=== PATIENT | female | born 1945 | race Caucasian/White ===

== ENCOUNTER 2023-05-17 11:10 | Inpatient (IN) | payer MEDICARE, BC ==
[2023-05-17] MEDS ORDERED: SODIUM CHLORIDE 0.9% 1,000 ML IV STA ×2 (11:29→14:02)
--- NOTE | 2023-05-17 12:17 | ED ---
Weakness HPI - General Chief complaint: Weakness Stated complaint: hyperglycemic Time Seen by Provider: 05/17/23 11:14 Source: patient, EMS, RN notes reviewed Mode of arrival: EMS Limitations: no limitations - History of Present Illness Initial comments: This is a 78-year-old female who presents to the emergency department for weakness. Per intermediate staff at [facility], over the last 2-3 days the patient has not been wanting to eat or drink anything. Patient did just have a defibrillator placed one week ago at [facility] and has been healing well without any issues. Patient is unsure why she's not wanting to eat or drink anything. Denies having any pain or complaints. States that she does not feel hungry. The intermediate has also noticed that she had low blood oxygen levels, and started her on 2 L via nasal cannula. They did not specify to EMS what her oxygen levels were. Patient denies any chest pain or shortness of breath. Denies any fevers, chills, sore throat, cough, dyspnea, chest pain, palpitations, abdominal pain, nausea, vomiting, diarrhea, back pain, or headaches. MD Complaint: generalized weakness - Related Data Home Medications Medication Instructions Recorded Confirmed Acetaminophen Tab [Tylenol] 650 mg PO Q4H PRN 05/02/22 05/17/23 Apixaban [Eliquis] 5 mg PO BID@799,199905/02/22 05/17/23 Docusate Sodium [Dok] 100 mg PO DAILY PRN 05/02/22 05/17/23 Ferrous Sulfate [Iron] 325 mg PO DAILY@79905/02/22 05/17/23 HYDROcodone/APAP 5-325MG [[place] 1 tab PO Q6HR PRN 05/02/22 05/17/23 5-325] Levothyroxine Sodium [Synthroid] 200 mcg PO DAILY@0630 05/02/22 05/17/23 Pantoprazole [Protonix] 40 mg PO DAILY@79905/02/22 05/17/23 carvediloL [Coreg] 3.125 mg PO BID@799,199905/02/22 05/17/23 Acetaminophen Tab [Tylenol Tab] 500 - 1,000 mg PO Q4H PRN 05/17/23 05/17/23 Amino Acids/Protein Hydrolys 30 ml PO DAILY@0800 05/17/23 05/17/23 [Pro-Stat Awc Liquid] Bismuth Subsalicylate 262 mg PO BID PRN 05/17/23 05/17/23 [Pepto-Bismol] Calcium Carbonate [Tums] 500 mg PO TID PRN 05/17/23 05/17/23 Clopidogrel [Plavix] 75 mg PO DAILY@1400 05/17/23 05/17/23 Cyanocobalamin (Vitamin B-12) 1,000 mcg PO DAILY@79905/17/23 05/17/23 [Vitamin B-12] Ezetimibe [Zetia] 10 mg PO HS@199905/17/23 05/17/23 Gabapentin [Neurontin] 200 mg PO TID@0800,1400,199905/17/23 05/17/23 Gnp Muscle Rub 10-15% Cream 1 applic TOPICAL DAILY PRN 05/17/23 05/17/23 Hydrocortisone Cream 1 applic TOPICAL DAILY PRN 05/17/23 05/17/23 [Hydrocortisone 1% Cream] Insulin Detemir [Levemir Flexpen] 25 units SQ HS@199905/17/23 05/17/23 Loperamide [Imodium] 2 mg PO QID PRN 05/17/23 05/17/23 Mag Hydrox/Aluminum Hyd/Simeth 10 - 20 ml PO BID PRN 05/17/23 05/17/23 [Mylanta Maximum Strength Liq] Magnesium Hydroxide [Milk of 1,200 mg PO Q72H PRN 05/17/23 05/17/23 Magnesia] Menthol-Zinc Oxide Oint 1 applic TOPICAL TID@0800,1400,199905/17/23 05/17/23 [Calmoseptine Ointment] Midodrine [ProAmatine] 5 mg PO TID@0630,1200,1600 05/17/23 05/17/23 Rgxfvrvr-Gkhtsnjclm-Wcxe Oint 1 applic TOPICAL DAILY PRN 05/17/23 05/17/23 [Triple Antibiotic Ointment] Nystatin 100,000 Unit/gm Powd 1 applic TOPICAL DAILY PRN 05/17/23 05/17/23 [Mycostatin Powder] Simethicone [Gas-X] 125 mg PO BID PRN 05/17/23 05/17/23 guaiFENesin SYRUP 100MG/5ML 200 mg PO Q4H PRN 05/17/23 05/17/23 [Robitussin] Allergies Allergy/AdvReac Type Severity Reaction Status Date / Time ciprofloxacin [From Cipro] AdvReac Unknown Verified 05/17/23 13:19 egg AdvReac Unknown Verified 05/17/23 13:19 Influenza Virus Vaccines AdvReac Unknown Verified 05/17/23 13:19 Penicillins AdvReac Confusion Verified 05/17/23 13:19 Review of Systems ROS Statement: Those systems with pertinent positive or pertinent negative responses have been documented in the HPI. ROS Other: All systems not noted in ROS Statement are negative. Past Medical History Past Medical History: Diabetes Mellitus, Hypertension, Thyroid Disorder Additional Past Medical History / Comment(s): Type 2 DM, hypothyroid History of Any Multi-Drug Resistant Organisms: None Reported Additional Past Surgical History / Comment(s): left BKA Past Psychological History: No Psychological Hx Reported Smoking Status: Former smoker Past Alcohol Use History: None Reported Past Drug Use History: None Reported General Exam Limitations: no limitations General appearance: alert, in no apparent distress Head exam: Present: atraumatic, normocephalic, normal inspection Respiratory exam: Present: normal lung sounds bilaterally. Absent: respiratory distress, wheezes, rales, rhonchi, stridor Cardiovascular Exam: Present: regular rate, normal rhythm, normal heart sounds. Absent: systolic murmur, diastolic murmur, rubs, gallop, clicks GI/Abdominal exam: Present: soft. Absent: tenderness Neurological exam: Present: alert, oriented X3, CN II-XII intact Psychiatric exam: Present: normal affect, normal mood Skin exam: Present: warm, dry, intact, normal color. Absent: rash Course Vital Signs 05/17/23 05/17/23 05/17/23 11:23 13:03 15:26 Temperature 98.2 F 99.3 F Pulse Rate 97 107 H 99 Respiratory 18 22 Rate Blood Pressure 91/55 119/67 134/71 O2 Sat by Pulse 96 99 Oximetry 05/17/23 16:43 Temperature Pulse Rate 86 Respiratory 20 Rate Blood Pressure 134/64 O2 Sat by Pulse 97 Oximetry Medical Decision Making - Medical Decision Making This is a 78-year-old female who presents to the emergency department for generalized weakness. Was pt. sent in by a medical professional or institution? @ -[facility] Did you speak to anyone other than the patient for history? @ -No Did you review nursing and triage notes? @ -Yes, and I agree, it is accurate with regards to the patient's symptoms. Were old charts reviewed? @ -No Differential Diagnosis? @ -Differential Weakness: Hypoglycemia, shock, sepsis, hyponatremia, anemia, infection, UT, ETOH, adverse medicine reaction, overdose, stroke, this is not meant to be an all-inclusive list. EKG interpreted by me (3pts min.)? @ -EKG interpreted by me demonstrating the following: Sinus rhythm. Ventricular rate 95 beats per minute, SD interval 175 ms, QRS duration 110 ms, QTC 397 ms. X-rays interpreted by me (1pt min.)? @ -Chest x-ray obtained, my interpretation identifies no localized consoli dations or infiltrates. CT interpreted by me (1pt min.)? @ -Not obtained U/S interpreted by me (1pt. min.)? @ -Not obtained What testing was considered but not performed? (CT, X-rays, U/S, labs)? Why? @ -None What meds were considered but not given? Why? @ -None Did you discuss the management of the patient with other professionals? @ -Yes, Dr. Francisco, who accepts the patient for admission. Did you reconcile home meds? @ -No Was smoking cessation discussed for >3mins.? @ -No Was critical care preformed (if so, how long)? @ -No Were there social determinants of health that impacted care today? How? (Homelessness, low income, unemployed, alcoholism, drug addiction, trans portation, low edu. Level, literacy, decrease access to med. care, skilled nursing, rehab)? @ -No Was there de-escalation of care discussed even if they declined? (Discuss DNR or withdrawal of care, Hospice)? @ -No What co-morbidities impacted this encounter? (DM, HTN, Smoking, COPD, CAD, Cancer, CVA, Hep., AIDS, mental health diagnosis, sleep apnea, morbid obesity)? @ -DM, HTN, thyroid disorder Was patient admitted / discharged? @ -Admitted. Lab work obtained revealing poor renal function and leukocytosis. However, we do not have prior lab values to compare renal function with. Chest x-ray obtained revealing no acute process. We did turn off the patient's supplemental oxygen that was reportedly started 2 days ago by Courtney Bolton. Her oxygen subsequently dropped to 91-92% on room air. We did end up turning her oxygen back on as a result. Urinalysis is consistent with infection. Patient meets septic criteria with the tachycardia, leukocytosis, and source of infection. She was given 1g of ceftriaxone. Urine and blood cultures obtained. She was also given a 2500 mL bolus of IV fluids per the 30 mL/kg requirement and started on maintenance fluids at 130 mL/hr. Patient admitted to medicine for further management of UTI complicated by sepsis. Undiagnosed new problem with uncertain prognosis? @ -None Drug Therapy requiring intensive monitoring for toxicity (Heparin, Nitro, Insulin, Cardizem)? @ -None Were any procedures done? @ -None Diagnosis/symptom? @ -Sepsis, UTI Acute, or Chronic, or Acute on Chronic? @ -Acute Uncomplicated (without systemic symptoms) or Complicated (systemic symptoms)? @ -Complicated Side effects of treatment? @ -None Exacerbation, Progression, or Severe Exacerbation] @ -Not applicable Poses a threat to life or bodily function? @ -Yes This case was discussed in detail with the attending ED physician, Dr. Zaidi. Presentation, findings, and treatment plan discussed in detail as well. - Lab Data Result diagrams: 05/17/23 13:00 05/17/23 11:24 Lab Results 05/17/23 05/17/23 05/17/23 Range/Units 11:24 11:24 11:24 WBC (3.8-10.6) k/uL RBC (3.80-5.40) m/uL Hgb (11.4-16.0) gm/dL Hct (34.0-46.0) % MCV (80.0-100.0) fL MCH (25.0-35.0) pg MCHC (31.0-37.0) g/dL RDW (11.5-15.5) % Plt Count (150-450) k/uL MPV Neutrophils % % Lymphocytes % % Monocytes % % Eosinophils % % Basophils % % Neutrophils # (1.3-7.7) k/uL Lymphocytes # (1.0-4.8) k/uL Monocytes # (0-1.0) k/uL Eosinophils # (0-0.7) k/uL Basophils # (0-0.2) k/uL PT 11.6 (9.0-12.0) sec INR 1.1 (<1.2) APTT 24.8 (22.0-30.0) sec Sodium 133 L (137-145) mmol/L Potassium 4.9 (3.5-5.1) mmol/L Chloride 101 (98-107) mmol/L Carbon Dioxide 21 L (22-30) mmol/L Anion Gap 11 mmol/L BUN 47 H (7-17) mg/dL Creatinine 2.00 H (0.52-1.04) mg/dL Est GFR (CKD-EPI)AfAm 27 (>60 ml/min/1.73 sqM) Est GFR (CKD-EPI)NonAf 24 (>60 ml/min/1.73 sqM) Glucose 231 H (74-99) mg/dL Plasma Lactic Acid Malik 1.1 (0.7-2.0) mmol/L Calcium 10.5 H (8.4-10.2) mg/dL Phosphorus 4.5 (2.5-4.5) mg/dL Magnesium 1.9 (1.6-2.3) mg/dL Total Bilirubin 0.8 (0.2-1.3) mg/dL AST 20 (14-36) U/L ALT 10 (4-34) U/L Alkaline Phosphatase 69 (38-126) U/L Troponin I (0.000-0.034) ng/mL Total Protein 7.5 (6.3-8.2) g/dL Albumin 3.5 (3.5-5.0) g/dL Urine Color Urine Appearance (Clear) Urine pH (5.0-8.0) Ur Specific [place] (1.001-1.035) Urine Protein (Negative) Urine Glucose (UA) (Negative) Urine Ketones (Negative) Urine Blood (Negative) Urine Nitrite (Negative) Urine Bilirubin (Negative) Urine Urobilinogen (<2.0) mg/dL Ur Leukocyte Esterase (Negative) Urine RBC (0-5) /hpf Urine WBC (0-5) /hpf Urine WBC Clumps (None) /hpf Urine Bacteria (None) /hpf Acetone, Qual Positive (Negative) Influenza Type A (PCR) (Not Detectd) Influenza Type B (PCR) (Not Detectd) RSV (PCR) (Not Detectd) SARS-CoV-2 (PCR) (Not Detectd) 05/17/23 05/17/23 05/17/23 Range/Units 11:24 11:47 13:00 WBC 17.7 H (3.8-10.6) k/uL RBC 4.15 (3.80-5.40) m/uL Hgb 12.8 (11.4-16.0) gm/dL Hct 40.0 (34.0-46.0) % MCV 96.4 (80.0-100.0) fL MCH 30.7 (25.0-35.0) pg MCHC 31.9 (31.0-37.0) g/dL RDW 13.5 (11.5-15.5) % Plt Count 376 (150-450) k/uL MPV 7.2 Neutrophils % 85 % Lymphocytes % 7 % Monocytes % 7 % Eosinophils % 0 % Basophils % 0 % Neutrophils # 15.0 H (1.3-7.7) k/uL Lymphocytes # 1.2 (1.0-4.8) k/uL Monocytes # 1.2 H (0-1.0) k/uL Eosinophils # 0.1 (0-0.7) k/uL Basophils # 0.0 (0-0.2) k/uL PT (9.0-12.0) sec INR (<1.2) APTT (22.0-30.0) sec Sodium (137-145) mmol/L Potassium (3.5-5.1) mmol/L Chloride (98-107) mmol/L Carbon Dioxide (22-30) mmol/L Anion Gap mmol/L BUN (7-17) mg/dL Creatinine (0.52-1.04) mg/dL Est GFR (CKD-EPI)AfAm (>60 ml/min/1.73 sqM) Est GFR (CKD-EPI)NonAf (>60 ml/min/1.73 sqM) Glucose (74-99) mg/dL Plasma Lactic Acid Malik (0.7-2.0) mmol/L Calcium (8.4-10.2) mg/dL Phosphorus (2.5-4.5) mg/dL Magnesium (1.6-2.3) mg/dL Total Bilirubin (0.2-1.3) mg/dL AST (14-36) U/L ALT (4-34) U/L Alkaline Phosphatase (38-126) U/L Troponin I 0.016 (0.000-0.034) ng/mL Total Protein (6.3-8.2) g/dL Albumin (3.5-5.0) g/dL Urine Color Urine Appearance (Clear) Urine pH (5.0-8.0) Ur Specific [place] (1.001-1.035) Urine Protein (Negative) Urine Glucose (UA) (Negative) Urine Ketones (Negative) Urine Blood (Negative) Urine Nitrite (Negative) Urine Bilirubin (Negative) Urine Urobilinogen (<2.0) mg/dL Ur Leukocyte Esterase (Negative) Urine RBC (0-5) /hpf Urine WBC (0-5) /hpf Urine WBC Clumps (None) /hpf Urine Bacteria (None) /hpf Acetone, Qual (Negative) Influenza Type A (PCR) Not Detected (Not Detectd) Influenza Type B (PCR) Not Detected (Not Detectd) RSV (PCR) Not Detected (Not Detectd) SARS-CoV-2 (PCR) Not Detected (Not Detectd) 05/17/23 Range/Units 13:30 WBC (3.8-10.6) k/uL RBC (3.80-5.40) m/uL Hgb (11.4-16.0) gm/dL Hct (34.0-46.0) % MCV (80.0-100.0) fL MCH (25.0-35.0) pg MCHC (31.0-37.0) g/dL RDW (11.5-15.5) % Plt Count (150-450) k/uL MPV Neutrophils % % Lymphocytes % % Monocytes % % Eosinophils % % Basophils % % Neutrophils # (1.3-7.7) k/uL Lymphocytes # (1.0-4.8) k/uL Monocytes # (0-1.0) k/uL Eosinophils # (0-0.7) k/uL Basophils # (0-0.2) k/uL PT (9.0-12.0) sec INR (<1.2) APTT (22.0-30.0) sec Sodium (137-145) mmol/L Potassium (3.5-5.1) mmol/L Chloride (98-107) mmol/L Carbon Dioxide (22-30) mmol/L Anion Gap mmol/L BUN (7-17) mg/dL Creatinine (0.52-1.04) mg/dL Est GFR (CKD-EPI)AfAm (>60 ml/min/1.73 sqM) Est GFR (CKD-EPI)NonAf (>60 ml/min/1.73 sqM) Glucose (74-99) mg/dL Plasma Lactic Acid Malik (0.7-2.0) mmol/L Calcium (8.4-10.2) mg/dL Phosphorus (2.5-4.5) mg/dL Magnesium (1.6-2.3) mg/dL Total Bilirubin (0.2-1.3) mg/dL AST (14-36) U/L ALT (4-34) U/L Alkaline Phosphatase (38-126) U/L Troponin I (0.000-0.034) ng/mL Total Protein (6.3-8.2) g/dL Albumin (3.5-5.0) g/dL Urine Color Light Yellow Urine Appearance Turbid H (Clear) Urine pH 5.5 (5.0-8.0) Ur Specific [place] 1.019 (1.001-1.035) Urine Protein 200 (Negative) Urine Glucose (UA) 1+ (Negative) Urine Ketones Negative (Negative) Urine Blood 0.5 (Negative) Urine Nitrite Negative (Negative) Urine Bilirubin Negative (Negative) Urine Urobilinogen <0.2 (<2.0) mg/dL Ur Leukocyte Esterase Large (Negative) Urine RBC >182 H (0-5) /hpf Urine WBC >182 H (0-5) /hpf Urine WBC Clumps Many H (None) /hpf Urine Bacteria Many H (None) /hpf Acetone, Qual (Negative) Influenza Type A (PCR) (Not Detectd) Influenza Type B (PCR) (Not Detectd) RSV (PCR) (Not Detectd) SARS-CoV-2 (PCR) (Not Detectd) - Radiology Data Radiology results: report reviewed, image reviewed Disposition Clinical Impression: Sepsis, UTI (urinary tract infection) Disposition: ADMITTED IP TO THIS HOSP
[2023-05-17 12:25] LABS: INR 1.1 (<1.2); Partial Thromboplastin Time 24.8 sec (22.0-30.0); Prothrombin Time 11.6 sec (9.0-12.0)
[2023-05-17 12:37] LABS: ALT 10 U/L (4-34); AST 20 U/L (14-36); African American GFR (CKD) 27 (>60 ml/min/1.73 sqM); Albumin 3.5 g/dL (3.5-5.0); Alkaline Phosphatase 69 U/L (38-126); Anion Gap 11 mmol/L; Blood Urea Nitrogen 47 mg/dL (7-17); Calcium 10.5 mg/dL (8.4-10.2); Carbon Dioxide 21 mmol/L (22-30); Chloride 101 mmol/L (98-107); Glucose 231 mg/dL (74-99); Magnesium 1.9 mg/dL (1.6-2.3); Non-African American GFR(CKD) 24 (>60 ml/min/1.73 sqM); Phosphorus 4.5 mg/dL (2.5-4.5); Potassium 4.9 mmol/L (3.5-5.1); Sodium 133 mmol/L (137-145); Total Bilirubin 0.8 mg/dL (0.2-1.3); Total Protein 7.5 g/dL (6.3-8.2)
--- NOTE | 2023-05-17 12:40 | XR ---
EXAMINATION TYPE: XR chest 2V DATE OF EXAM: 05/17/2023 COMPARISON: NONE TECHNIQUE: PA and lateral views submitted. HISTORY: Difficulty in breathing FINDINGS: The lungs are clear and there is no pneumothorax, pleural effusion, or focal pneumonia. Heart size normal and no overt failure. Osseous structures demonstrate hypertrophic and degenerative changes of the spine. Cardiac device noted. Diffuse osteopenia and arthropathy of the shoulders. Atherosclerotic change aorta. IMPRESSION: 1. No acute process.
[2023-05-17 13:29] LABS: Basophils % (A) 0 %; Eosinophils # (A) 0.1 k/uL (0-0.7); Eosinophils % (A) 0 %; HGB 12.8 gm/dL (11.4-16.0); Lymphocytes # (A) 1.2 k/uL (1.0-4.8); Lymphocytes % (A) 7 %; MCH 30.7 pg (25.0-35.0); MCHC 31.9 g/dL (31.0-37.0); MCV 96.4 fL (80.0-100.0); Mean Platelet Volume 7.2; Monocytes # (A) 1.2 k/uL (0-1.0); Monocytes % (A) 7 %; Neutrophils % (A) 85 %; Platelet Count 376 k/uL (150-450); RBC 4.15 m/uL (3.80-5.40); RDW 13.5 % (11.5-15.5); WBC 17.7 k/uL (3.8-10.6)
[2023-05-17 13:55] LABS: Bacteria,Urine Many /hpf; RBC,Urine >182 /hpf (0-5); WBC,Urine >182 /hpf (0-5)
[2023-05-17] MEDS ORDERED: cefTRIAXone IN SWFI 1,000 MG/10 ML SYRINGE IVP STA (14:00)
[2023-05-17] MEDS ORDERED: SODIUM CHLORIDE 0.9% 500 ML 500 ML IV STA (14:02)
[2023-05-17 14:21] LABS: Appearance,Urine Turbid (Clear); Color,Urine Light Yellow
[2023-05-17 14:22] LABS: Bilirubin,Urine Negative (Negative); Blood,Urine 0.5 (Negative); Glucose,Urine (UA) 1+ (Negative); Ketones,Urine Negative (Negative); PH, Urine 5.5 (5.0-8.0); Protein,Urine 200 (Negative); Specific Gravity,Urine 1.019 (1.001-1.035)
[2023-05-17 14:23] LABS: Leukocyte Esterase,Urine Large (Negative); Nitrite,Urine Negative (Negative); Urobilinogen,Urine <0.2 mg/dL (<2.0)
[2023-05-17] MEDS ORDERED: ONDANSETRON 4 MG/2 ML VIAL IVP PRN (14:25)
[2023-05-17] MEDS ORDERED: HYDROcodone/APAP 5-325MG 1 EACH TAB PO PRN (14:25)
[2023-05-17] MEDS ORDERED: NALOXONE 0.4 MG/ML 1 ML VIAL IV PRN (14:25)
[2023-05-17] MEDS ORDERED: ACETAMINOPHEN TAB 325 MG TAB PO PRN (14:25)
[2023-05-17] MEDS ORDERED: MELATONIN 3 MG TABLET PO PRN (16:36)
[2023-05-17] MEDS ORDERED: bisacodyL 5 MG TABLET.DR PO PRN (16:36)
[2023-05-17] MEDS ORDERED: DOCUSATE 100 MG CAP PO PRN (16:43)
[2023-05-17] MEDS ORDERED: BISMUTH SUBSALICYLATE 4,192 MG/240 ML BOTTLE PO PRN (16:43)
[2023-05-17] MEDS ORDERED: DEXTROSE 50% SYRINGE 50 ML IVP PRN ×2 (16:46)
[2023-05-17] MEDS: SODIUM CHLORIDE 0.9% 1,000 ML IV SCH (17:30)
--- NOTE | 2023-05-17 17:34 | P.HPIM ---
History of Present Illness H&P Date: 05/17/23 Patient is a 78-year-old female history of congestive heart failure status post AICD one week ago at [facility], diabetes mellitus type 2, and hypertension who presented to the ER from her assisted living due to decreased oral intake and lethargy. On arrival to the ER she was relatively hypotensive with a blood pressure of 91/55. Urinalysis was reviewed. CBC remarkable for white blood cell count of 17.7. ENT remarkable for sodium 133, carbon dioxide 21, BUN 47, creatinine 2, glucose 231, and calcium 10.5. Urinalysis showed greater than 182 white blood cells. Influenza a/B/RSV/COVID-19 testing was negative. Chest x-ray showed no acute process. Patient seen and examined at bedside in the emergency department. She has a friend present at bedside who helps as much history gathering as the patient is sleepy. Apparently she has felt tired and lethargic for the last 2 days. She had not noticed any dysuria or increased urinary frequency. She was having some lower abdominal pain and nausea but no vomiting. She reports that she recently had an AICD implanted at [facility] approximately one week ago and had a LifeVest before that. She does have a history of congestive heart failure but is unsure of her exact ejection fraction and cannot currently remember her drug purchaser's name. She is unsure she's had any fevers. She denies any unusual chest pain other than some discomfort when moving her arm near her new ICD site. Vital signs reviewed General: nontoxic, no distress, appears at stated age Derm: warm, dry Eyes: EOMI, no lid lag, anicteric sclera, pupils equal round reactive to light ENT: Nose and ears atraumatic, no thrush, no pharyngeal erythema, dry mucous membranes Cardiovascular: S1S2 reg, no murmur, positive posterior tibial pulse on the right, no edema, capillary refill less than 2 seconds, enlargement over ICD site was some bruising, no warmth, no erythema, no incisional breakdown or drainage. Lungs: clear to auscultation bilateral, no rhonchi, no rales, no wheeze, no accessory muscle use Abdominal: soft, nontender to palpation, no guarding, no appreciable organomegaly, normal bowel sounds Ext: no gross muscle atrophy, left sided BKA, no contractures Neuro: CN II-XII grossly intact, no focal neuro deficits Psych: Alert, oriented, appropriate affect Assessment/Plan: UTI with sepsis Acute kidney injury Acute metabolic encephalopathy -Rocephin 1 g every 24 hours -Await urine culture -Gentle IV fluids with normal saline at 130 mL/h 12 hours and then discontinued due to her history of congestive heart failure -Check renal ultrasound - when gets to floor suggest requesting records fro [facility] -Hold home [place] dosing due to altered mentation 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 Patient believes she may have atrial fibrillation bu t is on sure. -325 mg twice daily Plavix 75 mg daily. Patient is unsure why she is on this medication but denies any history of cardiac or vascular stenting, bypass surgery, or stroke/TIA -Zetia 10 mg at night -Ferrous sulfate 325 mg daily -Midodrine 5 mg 3 times daily GERD Hypothyroidism -Synthroid 200 g daily -Protonix 40 mg daily Imaging: As per HPI Data Review: As per HPI The patient is admitted with an anticipated greater than 2 midnight stay for evaluation of UTI with sepsis . CODE STATUS:Full DVT prophylaxis: Eliquis Anticipated discharge date: Pending Clinical Course Anticipated discharge place: Pending Clinical Course This dictation was prepared using [employer] voice recognition software. Though every attempt is made to correct errors during dictation some may still exist. Past Medical History Past Medical History: Diabetes Mellitus, Hypertension, Thyroid Disorder Additional Past Medical History / Comment(s): Type 2 DM, hypothyroid, congestive heart failure, atrial fibrillation, gastric ulcer History of Any Multi-Drug Resistant Organisms: None Reported Additional Past Surgical History / Comment(s): left BKA, AICD Past Psychological History: No Psychological Hx Reported Smoking Status: Former smoker Past Alcohol Use History: None Reported Past Drug Use History: None Reported Medications and Allergies Home Medications Medication Instructions Recorded Confirmed Type Acetaminophen Tab [Tylenol] 650 mg PO Q4H PRN 05/02/22 05/17/23 History Apixaban [Eliquis] 5 mg PO BID@0800,199905/02/22 05/17/23 History Docusate Sodium [Dok] 100 mg PO DAILY PRN 05/02/22 05/17/23 History Ferrous Sulfate [Iron] 325 mg PO DAILY@79905/02/22 05/17/23 History HYDROcodone/APAP 5-325MG [[place] 1 tab PO Q6HR PRN 05/02/22 05/17/23 History 5-325] Levothyroxine Sodium [Synthroid] 200 mcg PO DAILY@0630 05/02/22 05/17/23 History Pantoprazole [Protonix] 40 mg PO DAILY@79905/02/22 05/17/23 History carvediloL [Coreg] 3.125 mg PO BID@799,199905/02/22 05/17/23 History Acetaminophen Tab [Tylenol Tab] 500 - 1,000 mg PO Q4H PRN 05/17/23 05/17/23 History Amino Acids/Protein Hydrolys 30 ml PO DAILY@79905/17/23 05/17/23 History [Pro-Stat Awc Liquid] Bismuth Subsalicylate 262 mg PO BID PRN 05/17/23 05/17/23 History [Pepto-Bismol] Calcium Carbonate [Tums] 500 mg PO TID PRN 05/17/23 05/17/23 History Clopidogrel [Plavix] 75 mg PO DAILY@1400 05/17/23 05/17/23 History Cyanocobalamin (Vitamin B-12) 1,000 mcg PO DAILY@0800 05/17/23 05/17/23 History [Vitamin B-12] Ezetimibe [Zetia] 10 mg PO HS@199905/17/23 05/17/23 History Gabapentin [Neurontin] 200 mg PO TID@0800,1399,199905/17/23 05/17/23 History Gnp Muscle Rub 10-15% Cream 1 applic TOPICAL DAILY PRN 05/17/23 05/17/23 History Hydrocortisone Cream 1 applic TOPICAL DAILY PRN 05/17/23 05/17/23 History [Hydrocortisone 1% Cream] Insulin Detemir [Levemir Flexpen] 25 units SQ HS@199905/17/23 05/17/23 History Loperamide [Imodium] 2 mg PO QID PRN 05/17/23 05/17/23 History Mag Hydrox/Aluminum Hyd/Simeth 10 - 20 ml PO BID PRN 05/17/23 05/17/23 History [Mylanta Maximum Strength Liq] Magnesium Hydroxide [Milk of 1,200 mg PO Q72H PRN 05/17/23 05/17/23 History Magnesia] Menthol-Zinc Oxide Oint 1 applic TOPICAL TID@0800,1400,2000 05/17/23 05/17/23 History [Calmoseptine Ointment] Midodrine [ProAmatine] 5 mg PO TID@0630,1200,1600 05/17/23 05/17/23 History Deoluqgu-Dpuqwyawtw-Onyy Oint 1 applic TOPICAL DAILY PRN 05/17/23 05/17/23 History [Triple Antibiotic Ointment] Nystatin 100,000 Unit/gm Powd 1 applic TOPICAL DAILY PRN 05/17/23 05/17/23 History [Mycostatin Powder] Simethicone [Gas-X] 125 mg PO BID PRN 05/17/23 05/17/23 History guaiFENesin SYRUP 100MG/5ML 200 mg PO Q4H PRN 05/17/23 05/17/23 History [Robitussin] Allergies Allergy/AdvReac Type Severity Reaction Status Date / Time ciprofloxacin [From Cipro] AdvReac Unknown Verified 05/17/23 13:19 egg AdvReac Unknown Verified 05/17/23 13:19 Influenza Virus Vaccines AdvReac Unknown Verified 05/17/23 13:19 Penicillins AdvReac Confusion Verified 05/17/23 13:19 Physical Exam Osteopathic Statement: *. No significant issues noted on an osteopathic structural exam other than those noted in the History and Physical/Consult. Vitals: Vital Signs Temp Pulse Resp BP Pulse Ox 05/17/23 16:43 86 20 134/64 97 05/17/23 15:26 99.3 F 99 22 134/71 99 05/17/23 13:03 107 H 119/67 05/17/23 11:23 98.2 F 97 18 91/55 96 Intake and Output 05/17/23 05/17/23 05/17/23 06:59 14:59 22:59 Other: Weight 83.915 kg Results CBC & Chem 7: 05/17/23 13:00 05/17/23 11:24 Labs: Abnormal Lab Results - Last 24 Hours (Table) 05/17/23 05/17/23 05/17/23 Range/Units 11:24 13:00 13:30 WBC 17.7 H (3.8-10.6) k/uL Neutrophils # 15.0 H (1.3-7.7) k/uL Monocytes # 1.2 H (0-1.0) k/uL Sodium 133 L (137-145) mmol/L Carbon Dioxide 21 L (22-30) mmol/L BUN 47 H (7-17) mg/dL Creatinine 2.00 H (0.52-1.04) mg/dL Glucose 231 H (74-99) mg/dL Calcium 10.5 H (8.4-10.2) mg/dL Urine Appearance Turbid H (Clear) Urine RBC >182 H (0-5) /hpf Urine WBC >182 H (0-5) /hpf Urine WBC Clumps Many H (None) /hpf Urine Bacteria Many H (None) /hpf
--- NOTE | 2023-05-17 18:18 | US ---
EXAMINATION TYPE: US renals and bladder DATE OF EXAM: 05/17/2023 COMPARISON: NONE CLINICAL INDICATION: Female, 78 years old with history of FLORINDA; EXAM MEASUREMENTS: Right Kidney: 10.3 x 5.3 x 4.9 cm Left Kidney: 10.45 x 6.0 x 5.5 cm Right Kidney: No suspicious masses, cortical medullary differentiation maintained. No hydronephrosis. Left Kidney: No suspicious masses, cortical medullary differentiation maintained. No hydronephrosis . Urinary bladder is anechoic no suspicious masses. IMPRESSION: No evidence for suspicious mass. No evidence for obstructive uropathy. Cortical medullary differentia tion is maintained.
[2023-05-17 18:46] LABS: Glucose,Whole Blood 197 mg/dL (70-110)
[2023-05-17] MEDS: carvediloL 3.125 MG TAB PO SCH (19:08)
[2023-05-17] MEDS: EZETIMIBE 10 MG TAB PO SCH (19:08)
[2023-05-17] MEDS: INSULIN ASPART (NovoLOG) 100 UNIT/ML VIAL SQ SCH ×2 (19:08→21:10)
[2023-05-17] MEDS: APIXABAN 5 MG TAB PO SCH (19:08)
[2023-05-17] MEDS: GABAPENTIN 100 MG CAP PO SCH (19:08)
[2023-05-17 20:47] LABS: Glucose,Whole Blood 251 mg/dL (70-110)
[2023-05-17] MEDS: INSULIN DETEMIR (LEVEMIR) 100 UNIT/ML SYR SQ SCH (21:10)
[2023-05-18] MEDS: SODIUM CHLORIDE 0.9% 1,000 ML IV SCH ×4 (02:08→21:32)
[2023-05-18] MEDS: LEVOTHYROXINE 100 MCG TAB PO SCH (06:08)
[2023-05-18] MEDS: MIDODRINE 5 MG TAB PO SCH ×3 (06:14→15:19)
[2023-05-18 07:08] LABS: Glucose,Whole Blood 70 mg/dL (70-110)
[2023-05-18] MEDS: INSULIN ASPART (NovoLOG) 100 UNIT/ML VIAL SQ SCH ×4 (08:09→21:32)
[2023-05-18] MEDS: GABAPENTIN 100 MG CAP PO SCH ×3 (08:16→21:31)
[2023-05-18] MEDS: carvediloL 3.125 MG TAB PO SCH ×2 (08:16→21:31)
[2023-05-18] MEDS: APIXABAN 5 MG TAB PO SCH ×2 (08:17→21:31)
[2023-05-18] MEDS: PANTOPRAZOLE 40 MG TABLET PO SCH (08:17)
[2023-05-18] MEDS: FERROUS SULFATE 325 MG TAB PO SCH (08:17)
[2023-05-18 11:00] LABS: HCT 34.1 % (37.2-46.3); HGB 10.7 d/dL (12.0-15.0); MCH 30.8 pg (27.0-32.0); MCHC 31.4 d/dL (32.0-37.0); MCV 98.3 FL (80.0-97.0); Mean Platelet Volume 9.2 FL (9.5-12.2); NRBC Per 100 WBC 0 X 10*3/uL (0.00-0.01); Platelet Count 270 X 10*3/uL (140-440); RBC 3.47 X 10*6/uL (4.10-5.20); RDW 13.4 % (11.5-14.5); WBC 10.39 X 10*3/uL (4.50-10.00)
[2023-05-18 11:06] LABS: BUN/Creat Ratio 20.37 Ratio (12.00-20.00); Blood Urea Nitrogen 38.7 mg/dL (9.0-27.0); Calcium 9.6 mg/dL (8.7-10.3); Carbon Dioxide 20.8 mmol/L (21.6-31.8); Chloride 107 mmol/L (96-109); Glucose 75 mg/dL (70-110); Potassium 3.9 mmol/L (3.5-5.5); Sodium 138 mmol/L (135-145)
[2023-05-18 11:34] LABS: Glucose,Whole Blood 163 mg/dL (70-110)
[2023-05-18] MEDS: CLOPIDOGREL 75 MG TAB PO SCH (15:16)
[2023-05-18] MEDS: NYSTATIN 100,000 UNIT/GM OINT 30 GM TUBE TOPICAL SCH ×2 (15:18→21:33)
[2023-05-18] MEDS: NYSTATIN 100,000 UNIT/GM POWD 15 GM TOPICAL SCH ×2 (15:18→21:33)
[2023-05-18 17:03] LABS: Glucose,Whole Blood 210 mg/dL (70-110)
--- NOTE | 2023-05-18 18:43 | P.PN ---
Subjective Progress Note Date: 05/18/23 Hospital course: Patient is a 78-year-old female history of congestive heart failure status post AICD one week ago at [facility], diabetes mellitus type 2, and hypertension. She presented to the ER on 05/17/23 from her assisted living facility due to reports of decreased oral intake and lethargy. On arrival to the ER she was relatively hypotensive with a blood pressure of 91/55. Urinalysis was reviewed. CBC remarkable for white blood cell count of 17.7. ENT remarkable for sodium 133, carbon dioxide 21, BUN 47, creatinine 2, glucose 231, and calcium 10.5. Urinalysis showed greater than 182 white blood cells. Influenza a/B/RSV/COVID-19 testing was negative. Chest x-ray showed no acute process. Patient was admitted under our services for UTI with sepsis and acute kidney injury. Physical exam: Vital signs reviewed and stable. General: Nontoxic, no distress and appears stated age. Derm: Skin warm and dry, normal coloration for ethnicity. Head: Atraumatic, normocephalic and symmetric. Eyes: EOMs intact, no lid lag, and anicteric sclera Mouth: no lip lesions, mucus membranes moist Cardiovascular: regular rate and rhythm with normal S1S2, no murmur, positive posterior tibial pulses bilaterally, and cap refill < 2 seconds. Lungs: Respirations even, regular, and unlabored on room air. Lungs CTA bilaterally, no rhonchi, no rales, no wheezing, and no accessory muscle usage. Abdominal: soft, nontender to palpation, no guarding, no appreciable organo megaly Ext: Movement and sensation intact. No gross muscle atrophy, bilateral lower extremity edema with left BKA small scab on stump, no signs of erythema or infection Neuro: Speech clear, face symmetrical and CN II-XII grossly intact with no noted focal neuro deficits Psych: Alert and oriented to person, place, time, and situation. Appropriate and pleasant affect. 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 GERD -Continue Protonix 40 mg daily Hypothyroidism -Continue Synthroid 200 g daily Imaging reviewed:: Ultrasound renal and bladder showing no evidence for suspicious mass, no evidence for obstructive uropathy, and no hydronephrosis Data reviewed: Morning labs reviewed. CBC showing mild leukocytosis with WBC count of 10.39 and stable hemoglobin of 10.7. BMP showing slight improvement of renal function with BUN of 38.7, creatinine 1.9, and GFR of 27. Vital signs reviewed. Blood pressure 130/66, heart rate 111, respiratory rate 18, temp 98.6F, SpO2 of 94% on 2 L CODE STATUS: Full code DVT prophylaxis: Heparin Discussed with: Patient and RN Anticipated discharge date: Clinical course to determine Anticipated discharge place: Clinical course to determine Patient was seen independently by Nurse Pracitioner. This document was prepared using logtrust dictation software. Please allow for errors in warehouse order selector, while rare they do occur. Jose Dye NP rendered care for this patient independently, reviewed the findings and plan as documented in the note above. I did not physically speak with or examine the patient on this date. Objective - Vital Signs Vital signs: Vital Signs Temp 98.9 F 05/18/23 04:50 Pulse 91 05/18/23 01:53 Resp 16 05/18/23 01:53 BP 131/75 05/18/23 01:53 Pulse Ox 93 L 05/18/23 01:53 FiO2 Intake & Output 05/17/23 05/18/23 05/18/23 18:59 06:59 18:59 Weight 83.915 kg Other: Voiding Method Incontinent External Catheter # Voids 3 # Bowel Movements 3 - Labs CBC & Chem 7: 05/20/23 10:14 05/20/23 10:14 Labs: Abnormal Lab Results - Last 24 Hours (Table) 09/04/0105/17/23 05/17/23 Range/Units 11:24 13:00 13:30 WBC 17.7 H (3.8-10.6) k/uL Neutrophils # 15.0 H (1.3-7.7) k/uL Monocytes # 1.2 H (0-1.0) k/uL Sodium 133 L (137-145) mmol/L Carbon Dioxide 21 L (22-30) mmol/L BUN 47 H (7-17) mg/dL Creatinine 2.00 H (0.52-1.04) mg/dL Glucose 231 H (74-99) mg/dL POC Glucose (mg/dL) (70-110) mg/dL Calcium 10.5 H (8.4-10.2) mg/dL Urine Appearance Turbid H (Clear) Urine RBC >182 H (0-5) /hpf Urine WBC >182 H (0-5) /hpf Urine WBC Clumps Many H (None) /hpf Urine Bacteria Many H (None) /hpf 05/17/23 05/17/23 Range/Units 18:45 20:33 WBC (3.8-10.6) k/uL Neutrophils # (1.3-7.7) k/uL Monocytes # (0-1.0) k/uL Sodium (137-145) mmol/L Carbon Dioxide (22-30) mmol/L BUN (7-17) mg/dL Creatinine (0.52-1.04) mg/dL Glucose (74-99) mg/dL POC Glucose (mg/dL) 197 H 251 H (70-110) mg/dL Calcium (8.4-10.2) mg/dL Urine Appearance (Clear) Urine RBC (0-5) /hpf Urine WBC (0-5) /hpf Urine WBC Clumps (None) /hpf Urine Bacteria (None) /hpf
[2023-05-18 19:52] LABS: Glucose,Whole Blood 235 mg/dL (70-110)
[2023-05-18] MEDS: EZETIMIBE 10 MG TAB PO SCH (21:31)
[2023-05-18] MEDS: INSULIN DETEMIR (LEVEMIR) 100 UNIT/ML SYR SQ SCH (21:32)
[2023-05-19] MEDS: MIDODRINE 5 MG TAB PO SCH ×3 (05:49→15:47)
[2023-05-19] MEDS: LEVOTHYROXINE 100 MCG TAB PO SCH (05:49)
[2023-05-19] MEDS: SODIUM CHLORIDE 0.9% 1,000 ML IV SCH ×3 (05:54→21:29)
[2023-05-19 06:08] LABS: Glucose,Whole Blood 88 mg/dL (70-110)
[2023-05-19] MEDS: APIXABAN 5 MG TAB PO SCH ×2 (07:15→21:24)
[2023-05-19] MEDS: carvediloL 3.125 MG TAB PO SCH ×2 (07:15→21:24)
[2023-05-19] MEDS: PANTOPRAZOLE 40 MG TABLET PO SCH (07:15)
[2023-05-19] MEDS: GABAPENTIN 100 MG CAP PO SCH ×3 (07:15→21:24)
[2023-05-19] MEDS: FERROUS SULFATE 325 MG TAB PO SCH (07:15)
[2023-05-19] MEDS: INSULIN ASPART (NovoLOG) 100 UNIT/ML VIAL SQ SCH ×4 (07:16→21:28)
[2023-05-19 07:17] LABS: Glucose,Whole Blood 86 mg/dL (70-110)
[2023-05-19] MEDS: NYSTATIN 100,000 UNIT/GM POWD 15 GM TOPICAL SCH ×3 (07:17→21:28)
[2023-05-19] MEDS: NYSTATIN 100,000 UNIT/GM OINT 30 GM TUBE TOPICAL SCH ×3 (07:17→21:28)
[2023-05-19 12:10] LABS: Glucose,Whole Blood 101 mg/dL (70-110)
--- NOTE | 2023-05-19 13:22 | P.PN ---
Subjective Progress Note Date: 05/19/23 Hospital course: Patient is a 78-year-old female history of congestive heart failure status post AICD one week ago at [facility], diabetes mellitus type 2, and hypertension. She presented to the ER on 05/17/23 from her assisted living facility due to reports of decreased oral intake and lethargy. On arrival to the ER she was relatively hypotensive with a blood pressure of 91/55. Urinalysis was reviewed. CBC remarkable for white blood cell count of 17.7. ENT remarkable for sodium 133, carbon dioxide 21, BUN 47, creatinine 2, glucose 231, and calcium 10.5. Urinalysis showed greater than 182 white blood cells. Influenza a/B/RSV/COVID-19 testing was negative. Chest x-ray showed no acute process. Patient was admitted under our services for UTI with sepsis and acute kidney injury. Physical exam: Vital signs reviewed and stable. General: Nontoxic, no distress and appears stated age. Derm: Skin warm and dry, normal coloration for ethnicity. Head: Atraumatic, normocephalic and symmetric. Eyes: EOMs intact, no lid lag, and anicteric sclera Mouth: no lip lesions, mucus membranes moist Cardiovascular: regular rate and rhythm with normal S1S2, no murmur, positive posterior tibial pulses bilaterally, and cap refill < 2 seconds. Lungs: Respirations even, regular, and unlabored on room air. Lungs CTA bilaterally, no rhonchi, no rales, no wheezing, and no accessory muscle usage. Abdominal: soft, nontender to palpation, no guarding, no appreciable organo megaly Ext: Movement and sensation intact. No gross muscle atrophy, bilateral lower extremity edema with left BKA small scab on stump, no signs of erythema or infection Neuro: Speech clear, face symmetrical and CN II-XII grossly intact with no noted focal neuro deficits Psych: Alert and oriented to person, place, time, and situation. Appropriate and pleasant affect. 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 GERD -Continue Protonix 40 mg daily Hypothyroidism -Continue Synthroid 200 g daily Imaging reviewed:: -no new imaging for review at this time. Data reviewed: -Vital signs reviewed. Blood pressure 155/84, heart rate 81, respiratory rate 14, temp 97.7F, and SpO2 of 96% on room air. CODE STATUS: Full code DVT prophylaxis: Heparin Discussed with: Patient and RN Anticipated discharge date: Clinical course to determine Anticipated discharge place: Clinical course to determine Patient was seen independently by Nurse Pracitioner. This document was prepared using [employer] dictation software. Please allow for errors in director of catering, while rare they do occur. Jose Dye NP rendered care for this patient independently, reviewed the findings and plan as documented in the note above. I did not physically speak with or examine the patient on this date. Objective - Vital Signs Vital signs: Vital Signs Temp 97.7 F 05/19/23 07:14 Pulse 81 05/19/23 07:14 Resp 14 05/19/23 07:14 BP 155/84 05/19/23 07:14 Pulse Ox 96 05/19/23 07:14 FiO2 Intake & Output 05/18/23 05/19/23 05/19/23 18:59 06:59 18:59 Output Total 500 500 Balance -500 -500 Weight 89 kg Output: Urine 500 500 Other: Voiding Method Incontinent Incontinent External Catheter External Catheter # Voids 2 1 # Bowel Movements 1 - Labs CBC & Chem 7: 05/20/23 10:14 05/20/23 10:14 Labs: Abnormal Lab Results - Last 24 Hours (Table) 05/18/23 05/18/23 05/18/23 Range/Units 06:31 06:31 11:32 WBC 10.39 H (4.50-10.00) X 10*3/uL RBC 3.47 L (4.10-5.20) X 10*6/uL Hgb 10.7 L (12.0-15.0) d/dL Hct 34.1 L (37.2-46.3) % MCV 98.3 H (80.0-97.0) FL MCHC 31.4 L (32.0-37.0) d/dL MPV 9.2 L (9.5-12.2) FL Carbon Dioxide 20.8 L (21.6-31.8) mmol/L BUN 38.7 H (9.0-27.0) mg/dL Creatinine 1.9 H (0.6-1.5) mg/dL Est GFR (CKD-EPI) 27 L (>=60) BUN/Creatinine Ratio 20.37 H (12.00-20.00) Ratio POC Glucose (mg/dL) 163 H (70-110) mg/dL 05/18/23 05/18/23 Range/Units 17:01 19:50 WBC (4.50-10.00) X 10*3/uL RBC (4.10-5.20) X 10*6/uL Hgb (12.0-15.0) d/dL Hct (37.2-46.3) % MCV (80.0-97.0) FL MCHC (32.0-37.0) d/dL MPV (9.5-12.2) FL Carbon Dioxide (21.6-31.8) mmol/L BUN (9.0-27.0) mg/dL Creatinine (0.6-1.5) mg/dL Est GFR (CKD-EPI) (>=60) BUN/Creatinine Ratio (12.00-20.00) Ratio POC Glucose (mg/dL) 210 H 235 H (70-110) mg/dL Microbiology - Last 24 Hours (Table) 05/17/23 14:35 Blood Culture - Preliminary Blood 05/17/23 14:50 Blood Culture - Preliminary Blood
[2023-05-19] MEDS: CLOPIDOGREL 75 MG TAB PO SCH (13:56)
[2023-05-19 17:24] LABS: Glucose,Whole Blood 178 mg/dL (70-110)
[2023-05-19 21:10] LABS: Glucose,Whole Blood 229 mg/dL (70-110)
[2023-05-19] MEDS: EZETIMIBE 10 MG TAB PO SCH (21:24)
[2023-05-19] MEDS: INSULIN DETEMIR (LEVEMIR) 100 UNIT/ML SYR SQ SCH (21:28)
[2023-05-20] MEDS: SODIUM CHLORIDE 0.9% 1,000 ML IV SCH ×2 (01:57→09:33)
[2023-05-20] MEDS: LEVOTHYROXINE 100 MCG TAB PO SCH (06:29)
[2023-05-20] MEDS: MIDODRINE 5 MG TAB PO SCH ×3 (06:29→14:30)
[2023-05-20 07:08] LABS: Glucose,Whole Blood 61 mg/dL (70-110)
[2023-05-20 07:20] LABS: Glucose,Whole Blood 80 mg/dL (70-110)
[2023-05-20] MEDS: INSULIN ASPART (NovoLOG) 100 UNIT/ML VIAL SQ SCH ×4 (07:43→20:50)
[2023-05-20] MEDS: APIXABAN 5 MG TAB PO SCH ×2 (09:17→20:49)
[2023-05-20] MEDS: GABAPENTIN 100 MG CAP PO SCH ×3 (09:17→20:49)
[2023-05-20] MEDS: PANTOPRAZOLE 40 MG TABLET PO SCH (09:17)
[2023-05-20] MEDS: carvediloL 3.125 MG TAB PO SCH ×2 (09:17→20:49)
[2023-05-20] MEDS: FERROUS SULFATE 325 MG TAB PO SCH (09:17)
[2023-05-20] MEDS: NYSTATIN 100,000 UNIT/GM POWD 15 GM TOPICAL SCH ×3 (09:18→20:50)
[2023-05-20] MEDS: NYSTATIN 100,000 UNIT/GM OINT 30 GM TUBE TOPICAL SCH ×3 (09:18→20:50)
[2023-05-20 10:52] LABS: HCT 31.8 % (34.0-46.0); Hypochromasia Slight; MCH 30.9 pg (25.0-35.0); MCHC 31.6 g/dL (31.0-37.0); MCV 97.9 fL (80.0-100.0); Mean Platelet Volume 7.1; Platelet Count 298 k/uL (150-450); RBC 3.24 m/uL (3.80-5.40); RDW 13.2 % (11.5-15.5); WBC 7.1 k/uL (3.8-10.6)
[2023-05-20 11:21] LABS: African American GFR (CKD) 50 (>60 ml/min/1.73 sqM); Anion Gap 9 mmol/L; Blood Urea Nitrogen 22 mg/dL (7-17); Calcium 8.8 mg/dL (8.4-10.2); Carbon Dioxide 16 mmol/L (22-30); Chloride 109 mmol/L (98-107); Glucose 155 mg/dL (74-99); Magnesium 1.4 mg/dL (1.6-2.3); Non-African American GFR(CKD) 43 (>60 ml/min/1.73 sqM); Potassium 4.3 mmol/L (3.5-5.1); Sodium 134 mmol/L (137-145)
[2023-05-20 12:42] LABS: Glucose,Whole Blood 122 mg/dL (70-110)
[2023-05-20] MEDS: CLOPIDOGREL 75 MG TAB PO SCH (14:34)
[2023-05-20 17:15] LABS: Glucose,Whole Blood 156 mg/dL (70-110)
--- NOTE | 2023-05-20 17:28 | P.PN ---
Subjective Progress Note Date: 05/20/23 Hospital course: Patient is a 78-year-old female history of congestive heart failure status post AICD one week ago at [facility], diabetes mellitus type 2, and hypertension. She presented to the ER on 05/17/23 from her assisted living facility due to reports of decreased oral intake and lethargy. On arrival to the ER she was relatively hypotensive with a blood pressure of 91/55. Urinalysis was reviewed. CBC remarkable for white blood cell count of 17.7. ENT remarkable for sodium 133, carbon dioxide 21, BUN 47, creatinine 2, glucose 231, and calcium 10.5. Urinalysis showed greater than 182 white blood cells. Influenza a/B/RSV/COVID-19 testing was negative. Chest x-ray showed no acute process. Patient was admitted under our services for UTI with sepsis and acute kidney injury. Physical exam: Vital signs reviewed and stable. General: Nontoxic, no distress and appears stated age. Derm: Skin warm and dry, normal coloration for ethnicity. Head: Atraumatic, normocephalic and symmetric. Eyes: EOMs intact, no lid lag, and anicteric sclera Mouth: no lip lesions, mucus membranes moist Cardiovascular: regular rate and rhythm with normal S1S2, no murmur, positive posterior tibial pulses bilaterally, and cap refill < 2 seconds. Lungs: Respirations even, regular, and unlabored on room air. Lungs CTA bilaterally, no rhonchi, no rales, no wheezing, and no accessory muscle usage. Abdominal: soft, nontender to palpation, no guarding, no appreciable organo megaly Ext: Movement and sensation intact. No gross muscle atrophy, bilateral lower extremity edema with left BKA small scab on stump, no signs of erythema or infection Neuro: Speech clear, face symmetrical and CN II-XII grossly intact with no noted focal neuro deficits Psych: Alert and oriented to person, place, time, and situation. Appropriate and pleasant affect. Assessment and Plan of Care: UTI, completed three-day course of IV antibiotics with Rocephin and urine culture resulting negative. Acute kidney injury, improved after IV fluid hydration Acute metabolic encephalopathy, resolved -Patient completed 3 day course of IV antibiotics with Rocephin 1 g every 24 hours on 05/20/23. -Urine culture results negative. -Ultrasound renal and bladder reviewed in radiology report showing no evidence for suspicious mass, no evidence for obstructive uropathy, and no hydronephrosis -Blood cultures showing no growth to date. -Renal function showing significant improvement with BUN of 22, creatinine 1.22, and GFR 43. Creatinine upon arrival was 2.0. 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 Levemir decreased to 15 units nightly at this time. -Continue with glycemic protocol with NovoLog sliding scale -Continue Gabapentin 200 mg 3 times daily Paroxysmal atrial fibrillation Compensated systolic congestive heart failure, unknown ejection fraction recent ICD Suspect orthostatic hypotension -Continue cardiac medication regimen with Eliquis 5 mg twice daily, carvedilol 3.125 mg twice daily, Plavix 75 mg daily, Zetia 10 mg nightly, midodrine 5 mg 3 times daily. GERD -Continue Protonix 40 mg daily Hypothyroidism -Continue Synthroid 200 g daily Imaging reviewed:: -no new imaging for review at this time. Data reviewed: -Vital signs reviewed. Blood pressure 155/84, heart rate 81, respiratory rate 14, temp 97.7F, and SpO2 of 96% on room air. CODE STATUS: Full code DVT prophylaxis: Heparin Discussed with: Patient and RN Anticipated discharge date: Tomorrow morning pending monitoring of glucose levels and no further episodes of hypoglycemia Anticipated discharge place: [facility] to [facility] [place] [facility] [place] Patient was seen independently by Nurse Pracitioner. This document was prepared using [employer] dictation software. Please allow for errors in sample steamer, while rare they do occur. Jose Dye NP rendered care for this patient independently, reviewed the findings and plan as documented in the note above. I did not physically speak with or examine the patient on this date. Objective - Vital Signs Vital signs: Vital Signs Temp 97.5 F L 05/20/23 07:15 Pulse 80 05/20/23 07:15 Resp 16 05/20/23 07:15 BP 154/81 05/20/23 07:15 Pulse Ox 96 05/20/23 08:16 FiO2 Intake & Output 05/19/23 05/20/23 05/20/23 18:59 06:59 18:59 Output Total 200 200 Balance -200 -200 Weight 91.5 kg Output: Urine 200 Stool 200 Other: Voiding Method Incontinent Incontinent External Catheter External Catheter - Labs CBC & Chem 7: 05/20/23 10:14 05/20/23 10:14 Labs: Abnormal Lab Results - Last 24 Hours (Table) 05/19/23 05/19/23 05/20/23 Range/Units 17:23 21:08 07:00 POC Glucose (mg/dL) 178 H 229 H 61 L (70-110) mg/dL Microbiology - Last 24 Hours (Table) 05/17/23 14:35 Blood Culture - Preliminary Blood 05/17/23 14:50 Blood Culture - Preliminary Blood 05/17/23 14:00 Urine Culture - Final Urine,Catheterized
[2023-05-20] MEDS ORDERED: INSULIN DETEMIR (LEVEMIR) 100 UNIT/ML SYR SQ SCH (20:00)
[2023-05-20 20:12] LABS: Glucose,Whole Blood 166 mg/dL (70-110)
[2023-05-20] MEDS: EZETIMIBE 10 MG TAB PO SCH (20:49)
[2023-05-21 03:32] LABS: Glucose,Whole Blood 141 mg/dL (70-110)
[2023-05-21] MEDS: LEVOTHYROXINE 100 MCG TAB PO SCH (06:39)
[2023-05-21] MEDS: MIDODRINE 5 MG TAB PO SCH ×3 (06:44→16:05)
[2023-05-21 07:32] LABS: Glucose,Whole Blood 82 mg/dL (70-110)
[2023-05-21] MEDS: INSULIN ASPART (NovoLOG) 100 UNIT/ML VIAL SQ SCH ×3 (07:36→17:44)
[2023-05-21] MEDS: APIXABAN 5 MG TAB PO SCH (07:36)
[2023-05-21] MEDS: NYSTATIN 100,000 UNIT/GM POWD 15 GM TOPICAL SCH ×2 (07:37→17:43)
[2023-05-21] MEDS: FERROUS SULFATE 325 MG TAB PO SCH (07:37)
[2023-05-21] MEDS: carvediloL 3.125 MG TAB PO SCH (07:37)
[2023-05-21] MEDS: PANTOPRAZOLE 40 MG TABLET PO SCH (07:37)
[2023-05-21] MEDS: GABAPENTIN 100 MG CAP PO SCH ×2 (07:37→13:23)
[2023-05-21] MEDS: NYSTATIN 100,000 UNIT/GM OINT 30 GM TUBE TOPICAL SCH ×2 (07:38→17:46)
[2023-05-21 12:34] LABS: Glucose,Whole Blood 181 mg/dL (70-110)
[2023-05-21] MEDS: CLOPIDOGREL 75 MG TAB PO SCH (13:23)
--- NOTE | 2023-05-21 16:51 | P.DS ---
Providers Date of admission: 05/17/23 14:14 Expected date of discharge: 05/21/23 Attending physician: Gretchen Francisco DO Primary care physician: Syd Laura [facility] Course: Discharge Diagnosis: UTI, completed three-day course of IV antibiotics with Rocephin and urine culture resulting negative. 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 Patient did have an isolated episode of hypoglycemia during hospitalization and Levemir was also decreased down to 15 units nightly. Hypoglycemia. Patient did have an isolated episode of hypoglycemia during hospitalization and Levemir was also decreased down to 15 units nightly. Paroxysmal atrial fibrillation. Continue cardiac medication regimen with Eliquis 5 mg twice daily, and carvedilol 3.125 mg twice daily, Compensated systolic congestive heart failure, unknown ejection fraction recent ICD. Continue cardiac medication regimen with Eliquis 5 mg twice daily, carvedilol 3.125 mg twice daily, Plavix 75 mg daily, Zetia 10 mg nightly, and midodrine 5 mg 3 times daily. Suspect orthostatic hypotension. Continue midodrine 5 mg 3 times daily. GERD. Continue Protonix 40 mg daily Hypothyroidism. Continue Synthroid 200 g daily Hospital Course: Patient is a 78-year-old female history of congestive heart failure status post AICD one week ago at [facility], diabetes mellitus type 2, and hypertension. She presented to the ER on 05/17/23 from her assisted living facility due to reports of decreased oral intake and lethargy. On arrival to the ER she was relatively hypotensive with a blood pressure of 91/55. Urinalysis was reviewed. CBC remarkable for white blood cell count of 17.7. ENT remarkable for sodium 133, carbon dioxide 21, BUN 47, creatinine 2, glucose 231, and calcium 10.5. Urinalysis showed greater than 182 white blood cells. Influenza a/B/RSV/COVID-19 testing was negative. Chest x-ray showed no acute process. Patient was admitted under our services for UTI with sepsis and acute kidney injury. Patient completed three-day course of IV antibiotics with Rocephin and an urine culture was negative antibiotics are completed at this time. Acute kidney injury resolved after IV fluid hydration. Decreasing from a creatinine initially 2.0 down to BUN of 22, creatinine 1.22, and GFR 43. Patient did have an isolated episode of hypoglycemia during hospitalization and Levemir was also decreased down to 15 units nightly. Patient medically stable at this time, no further need for antibiotics or IV fluid hydration and his UTI and acute kidney injury of resolved. Discharge orders placed and patient to return to assisted living at [facility] and recommend follow up outpatient with PCP. Physical exam: Vital signs reviewed and stable. General: Nontoxic, no distress and appears stated age. Derm: Skin warm and dry, normal coloration for ethnicity. Head: Atraumatic, normocephalic and symmetric. Eyes: EOMs intact, no lid lag, and anicteric sclera Mouth: no lip lesions, mucus membranes moist Cardiovascular: regular rate and rhythm with normal S1S2, no murmur, positive posterior tibial pulses bilaterally, and cap refill < 2 seconds. Lungs: Respirations even, regular, and unlabored on room air. Lungs CTA bilaterally, no rhonchi, no rales, no wheezing, and no accessory muscle usage. Abdominal: soft, nontender to palpation, no guarding, no appreciable orga nomegaly Ext: Movement and sensation intact. No gross muscle atrophy, bilateral lower extremity edema with left BKA small scab on stump, no signs of erythema or infection Neuro: Speech clear, face symmetrical and CN II-XII grossly intact with no noted focal neuro deficits Psych: Alert and oriented to person, place, time, and situation. Appropriate and pleasant affect. A total of 32 minutes of time were spent preparing this complex discharge summary. Pt was discharged on 05/21/23 at 4:45 PM Patient was seen independently by Nurse Practitioner. This document was prepared using [email or web address] dictation software. Please allow for errors in assistant professor of biology while rare they do occur. Jose Dye NP rendered care for this patient independently, reviewed the findings and plan as documented in the note above. I did not physically speak with or examine the patient on this date. Patient Condition at Discharge: Stable Plan - Discharge Summary Discharge Rx Participant: No New Discharge Prescriptions: Continue Pantoprazole [Protonix] 40 mg PO DAILY@0800 HYDROcodone/APAP 5-325MG [Gillette 5-325] 1 tab PO Q6HR PRN PRN Reason: Pain Apixaban [Eliquis] 5 mg PO BID@0800,2000 Docusate Sodium [Dok] 100 mg PO DAILY PRN PRN Reason: Constipation Nystatin 100,000 Unit/gm Powd [Mycostatin Powder] 1 applic TOPICAL DAILY PRN PRN Reason: Skin Irritation Bismuth Subsalicylate [Pepto-Bismol] 262 mg PO BID PRN PRN Reason: Gi Upset Magnesium Hydroxide [Milk of Magnesia] 1,200 mg PO Q72H PRN PRN Reason: Constipation Gnp Muscle Rub 10-15% Cream 1 applic TOPICAL DAILY PRN PRN Reason: Pain Mag Hydrox/Aluminum Hyd/Simeth [Mylanta Maximum Strength Liq] 10 - 20 ml PO BID PRN PRN Reason: Gi Upset Loperamide [Imodium] 2 mg PO QID PRN PRN Reason: Diarrhea Menthol-Zinc Oxide Oint [Calmoseptine Ointment] 1 applic TOPICAL TID@0 800,1400,2000 Ezetimibe [Zetia] 10 mg PO HS@1999 guaiFENesin SYRUP 100MG/5ML [Robitussin] 200 mg PO Q4H PRN PRN Reason: Cough carvediloL [Coreg] 3.125 mg PO BID@0800,2000 Acetaminophen Tab [Tylenol] 650 mg PO Q4H PRN PRN Reason: Pain Levothyroxine Sodium [Synthroid] 200 mcg PO DAILY@0630 Ferrous Sulfate [Iron] 325 mg PO DAILY@0800 Simethicone [Gas-X] 125 mg PO BID PRN PRN Reason: GAS Jxzjztgf-Hiitrbtlsg-Ekyj Oint [Triple Antibiotic Ointment] 1 applic TOPICAL DAILY PRN PRN Reason: Skin Irritation Hydrocortisone Cream [Hydrocortisone 1% Cream] 1 applic TOPICAL DAILY PRN PRN Reason: Skin Irritation Calcium Carbonate [Tums] 500 mg PO TID PRN PRN Reason: Gi Upset Cyanocobalamin (Vitamin B-12) [Vitamin B-12] 1,000 mcg PO DAILY@0800 Amino Acids/Protein Hydrolys [Pro-Stat Awc Liquid] 30 ml PO DAILY@0800 Midodrine [ProAmatine] 5 mg PO TID@0630,1200,1600 Gabapentin [Neurontin] 200 mg PO TID@0800,1400,2000 Clopidogrel [Plavix] 75 mg PO DAILY@1400 Changed Insulin Detemir [Levemir Flexpen] 15 units SQ HS@1999 #0 Discontinued Acetaminophen Tab [Tylenol Tab] 500 - 1,000 mg PO Q4H PRN PRN Reason: Fever And/ Or Pain Discharge Medication List Acetaminophen Tab [Tylenol] 650 mg PO Q4H PRN 05/02/22 [History] Apixaban [Eliquis] 5 mg PO BID@08,199905/02/22 [History] Docusate Sodium [Dok] 100 mg PO DAILY PRN 05/02/22 [History] Ferrous Sulfate [Iron] 325 mg PO DAILY@79905/02/22 [History] HYDROcodone/APAP 5-325MG [Gillette 5-325] 1 tab PO Q6HR PRN 05/02/22 [History] Levothyroxine Sodium [Synthroid] 200 mcg PO DAILY@0605/02/22 [History] Pantoprazole [Protonix] 40 mg PO DAILY@79905/02/22 [History] carvediloL [Coreg] 3.125 mg PO BID@799,199905/02/22 [History] Amino Acids/Protein Hydrolys [Pro-Stat Awc Liquid] 30 ml PO DAILY@79905/17/23 [History] Bismuth Subsalicylate [Pepto-Bismol] 262 mg PO BID PRN 05/17/23 [History] Calcium Carbonate [Tums] 500 mg PO TID PRN 05/17/23 [History] Clopidogrel [Plavix] 75 mg PO DAILY@139905/17/23 [History] Cyanocobalamin (Vitamin B-12) [Vitamin B-12] 1,000 mcg PO DAILY@79905/17/23 [History] Ezetimibe [Zetia] 10 mg PO HS@199905/17/23 [History] Gabapentin [Neurontin] 200 mg PO TID@0800,1399,199905/17/23 [History] Gnp Muscle Rub 10-15% Cream 1 applic TOPICAL DAILY PRN 05/17/23 [History] Hydrocortisone Cream [Hydrocortisone 1% Cream] 1 applic TOPICAL DAILY PRN 05/17/23 [History] Loperamide [Imodium] 2 mg PO QID PRN 05/17/23 [History] Mag Hydrox/Aluminum Hyd/Simeth [Mylanta Maximum Strength Liq] 10 - 20 ml PO BID PRN 05/17/23 [History] Magnesium Hydroxide [Milk of Magnesia] 1,200 mg PO Q72H PRN 05/17/23 [History] Menthol-Zinc Oxide Oint [Calmoseptine Ointment] 1 applic TOPICAL TID@0800,1400,2000 05/17/23 [History] Midodrine [ProAmatine] 5 mg PO TID@0630,1200,1600 05/17/23 [History] Cozpzaym-Cgoopsiypf-Zfea Oint [Triple Antibiotic Ointment] 1 applic TOPICAL DAILY PRN 05/17/23 [History] Nystatin 100,000 Unit/gm Powd [Mycostatin Powder] 1 applic TOPICAL DAILY PRN 05/17/23 [History] Simethicone [Gas-X] 125 mg PO BID PRN 05/17/23 [History] guaiFENesin SYRUP 100MG/5ML [Robitussin] 200 mg PO Q4H PRN 05/17/23 [History] Insulin Detemir [Levemir Flexpen] 15 units SQ HS@1999 #0 05/21/23 [Rx] Follow up Appointment(s)/Referral(s): Syd Sanchez DO [Primary Care Provider] - 1-2 days Patient Instructions/Handouts: Hypoglycemia in a Person with Diabetes (DC) Discharge Disposition: TRANSFER TO SNF/ECF
[2023-05-21 17:13] LABS: Glucose,Whole Blood 260 mg/dL (70-110)
[2023-05-21 20:43] VITALS: BP 165/89; PULSE 94; RESP 18; TEMP 98.2
== END 2023-05-21 20:20 | DRG 871 ==
LOC: EC 11:10 → 5NMEDONC 14:14
PROVIDERS: ADMIT Internal Medicine; ATTEND Internal Medicine
DX: A41.9 Sepsis, unspecified organism (principal); G93.41 Metabolic encephalopathy; N17.9 Acute kidney failure, unspecified; I50.22 Chronic systolic (congestive) heart failure; N39.0 Urinary tract infection, site not specified; E11.42 Type 2 diabetes mellitus with diabetic polyneuropathy; I11.0 Hypertensive heart disease with heart failure; E03.9 Hypothyroidism, unspecified; E11.65 Type 2 diabetes mellitus with hyperglycemia; I95.1 Orthostatic hypotension; I48.0 Paroxysmal atrial fibrillation; K21.9 Gastro-esophageal reflux disease without esophagitis; Z20.822 Contact with and (suspected) exposure to COVID-19; Z89.512 Acquired absence of left leg below knee; Z79.899 Other long term (current) drug therapy; Z87.11 Personal history of peptic ulcer disease; Z95.810 Presence of automatic (implantable) cardiac defibrillator; Z87.891 Personal history of nicotine dependence; Z79.890 Hormone replacement therapy; Z79.01 Long term (current) use of anticoagulants; Z79.02 Long term (current) use of antithrombotics/antiplatelets; Z79.4 Long term (current) use of insulin; Z79.891 Long term (current) use of opiate analgesic; Z88.7 Allergy status to serum and vaccine; Z88.1 Allergy status to other antibiotic agents; Z88.0 Allergy status to penicillin; Z91.012 Allergy to eggs; Z28.310 Unvaccinated for COVID-19
CPT/HCPCS: 36415; 71046; 76770; 80048; 80053; 81001; 82009; 83036; 83605; 83735; 84100; 84484; 85025; 85027; 85610; 85730; 87040; 87086; 87636; 93005; 94760; 96361; 96374; 99285